=== PATIENT | female | born 1965 | race Caucasian/White ===

== ENCOUNTER 2016-12-23 19:14 | Emergency (ER) | payer OTHER ==
[~2016-12-23] VITALS: Ht 160 cm; Wt 76.0 kg
[~2016-12-23 19:14] MED LIST: BACT800T5 PO; DOXY100T PO; IBUP400 PO; PERC5TAB12 PO; SYNT175T PO; TYLE3 PO
[2016-12-23 19:23] VITALS: BP 117/71; PULSE 92; RESP 18; TEMP 98.1; O2SAT 97
[2016-12-23] MEDS ORDERED: SYNT175T PO (19:37)
--- NOTE | 2016-12-23 19:39 | PD ---
HPI Chief Complaint: Musculoskeletal Complaint Time Seen by Provider: 19:35 Travel History International Travel<30 days: No Contact w/Intl Traveler<30days: No Traveled to known affect area: No History of Present Illness HPI 51-year-old female presents to the emergency Department with painful lesions to the dorsal distal right foot. Patient wonders if it may be due to tripping on her irregular lorena. Patient has a history of staph infections in the past. Patient is unsure if she has ever had MRSA, but it is documented in her chart. She has no fever, chills, or pain up the leg. There is no drainage at this time. She is ambulatory without difficulty. She is allergic to ibuprofen. [facility] Past Medical History Anxiety: Yes Diabetes: No Diminished Hearing: No Immunizations Current: No Thyroid Disease: Yes (HYPO) ?: Not LMP: LAST WEEK : 3 Para: 3 Tubal Ligation: Yes Social History Alcohol Use: Yes (RARELY) Tobacco Use: No Substance Use: No Allergies-Medications (Allergen,Severity, Reaction): Coded Allergies: Ibuprofen (Verified Adverse Reaction, Mild, N & V, 12/23/16) *MDRO Multi-Drug Resistant Organism (Unverified Adverse Reaction, Unknown , 05/02/15) MRSA groin wound 04/2015. Reported Meds & Prescriptions Reported Meds & Active Scripts Active Bactroban Topical (Mupirocin) 2 % Cream 1 Applic TOPICAL BID Bactrim DS (Sulfamethoxazole-Trimethoprim) 800-160 Mg Tab 1 Tab PO BID Reported Synthroid (Levothyroxine Sodium) 175 Mcg Tab 175 Mcg PO DAILY Review of Systems Except as stated in HPI: all other systems reviewed are Neg General / Constitutional: No: Fever Eyes: No: Visual changes HENT: No: Headaches Cardiovascular: No: Chest Pain or Discomfort Respiratory: No: Shortness of Breath Gastrointestinal: No: Abdominal Pain Genitourinary: No: Dysuria Musculoskeletal: No: Pain Skin: Positive Lesions (see history present illness.), No Rash Neurologic: No: Weakness Psychiatric: No: Depression Endocrine: No: Polydipsia Hematologic/Lymphatic: No: Easy Bruising Physical Exam Narrative GENERAL: Patient appears no acute distress. SKIN: Warm and dry. Normal color. Normal turgor. Patient has 5 raised pus filled blisters to the right distal dorsal foot with localized erythema and minimal amount of swelling. There is no lymphangitis. There is no pain to the sole of the foot or toes. Patient has a similar lesion on her pannus on her left lower abdomen. HEAD: Atraumatic. Normocephalic. EYES: Pupils equal and round. No scleral icterus. No injection or drainage. ENT: No nasal bleeding or discharge. Mucous membranes pink and moist. Pharynx is clear. NECK: Trachea midline. No JVD. CARDIOVASCULAR: Regular rate and rhythm. RESPIRATORY: No accessory muscle use. Clear to auscultation. Breath sounds equal bilaterally. MUSCULOSKELETAL: Extremities without clubbing, cyanosis, or edema. No obvious deformities. NEUROLOGICAL: Awake and alert. No obvious cranial nerve deficits. Motor grossly within normal limits. Five out of 5 muscle strength in the arms and legs. Normal speech. PSYCHIATRIC: Appropriate mood and affect; insight and judgment normal. Data Data Last Documented VS Vital Signs Date Time Temp Pulse Resp B/P Pulse Ox O2 Delivery O2 Flow Rate FiO2 12/23/16 19:23 98.1 92 18 117/71 97 Orders Wound Culture And Gram Stain (12/23/16 19:39) [facility] Medical Decision Making Medical Screen Exam Complete: Yes Emergency Medical Condition: Yes Medical Record Reviewed: Yes Differential Diagnosis Cellulitis. MRSA. Possible shingles. Narrative Course Patient medically stable at time of exam. Wound culture obtained and sent to lab. Patient treated with Bactrim he has been 10 days. Patient also given Bactroban ointment to the lesions twice daily for 2 weeks. Patient follow-up with her primary care physician as needed or return to emergency department if symptoms worsen. Diagnosis Primary Impression: Cellulitis of right foot Additional Impression: MRSA (methicillin resistant Staphylococcus aureus) Patient Instructions: Cellulitis (ED), General Instructions, MRSA (Methicillin Resistant Staphylococcus Aureus) (ED) Additional Instructions: Wound culture obtained and sent to lab. Patient treated with Bactrim he has been 10 days. Patient also given Bactroban ointment to the lesions twice daily for 2 weeks. Patient follow-up with her primary care physician as needed or return to emergency department if symptoms worsen. Med/Other Pt SpecificInfo: Prescription(s) given Scripts Mupirocin Topical (Bactroban Topical)2 % Cream1 Applic TOPICAL BID #1 TUBE Prov:Naresh Ordonez MD 12/23/16 Sulfamethoxazole-Trimethoprim (Bactrim DS)800-160 Mg Tab1 Tab PO BID #20 TAB Prov:Naresh Ordonez MD 12/23/16 Disposition: 01 DISCHARGE HOME Condition: Stable Nish Ny Dec 23, 2016 19:39
[2016-12-23] MEDS ORDERED: MUPI2%T TOPICAL (19:41)
[2016-12-23] MEDS ORDERED: BACT800T5 PO (19:41)
== END 2016-12-23 19:55 | disposition home or self-care (01) ==
LOC: PHEFT 19:14
DX: L03.115 Cellulitis of right lower limb (principal); E03.9 Hypothyroidism, unspecified
CPT/HCPCS: 86403; 87070; 87205; 99283

== ENCOUNTER 2017-04-04 08:28 | Emergency (ER) | payer OTHER ==
[~2017-04-04] VITALS: Ht 167.6 cm; Wt 76.0 kg
[~2017-04-04 08:28] MED LIST changes: -DOXY100T PO; -IBUP400 PO; +MUPI2%T TOPICAL; -PERC5TAB12 PO; -TYLE3 PO
[2017-04-04 08:34] VITALS: BP 117/70; PULSE 83; RESP 16; TEMP 99; O2SAT 96
[2017-04-04] MEDS ORDERED: BACT800T5 PO (08:52)
[2017-04-04] MEDS ORDERED: SYNT175T PO (08:52)
--- NOTE | 2017-04-04 08:52 | PD ---
HPI Chief Complaint: Skin Problem Time Seen by Provider: 08:48 Travel History International Travel<30 days: No Contact w/Intl Traveler<30days: No Traveled to known affect area: No History of Present Illness HPI Patient presents with complaints of a boil in her right inguinal region. 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 States she is also out of her thyroid medication. Requesting refill. States she does not have a PCP. Denies any nausea vomiting diarrhea or fever. Denies any new chest pain shortness of breath urinary or bowel symptoms. Denies or allergies. PFSH Past Medical History Anxiety: Yes Diabetes: No Diminished Hearing: No Integumentary: Yes (hx mrsa) Immunizations Current: Yes Thyroid Disease: Yes (HYPO) Tetanus Vaccination: > 5 Years Influenza Vaccination: No ?: Not : 3 Para: 3 Tubal Ligation: Yes Social History Alcohol Use: Yes (RARELY) Tobacco Use: No Substance Use: No Allergies-Medications (Allergen,Severity, Reaction): Coded Allergies: Ibuprofen (Verified Adverse Reaction, Mild, N & V, 04/04/17) *MDRO Multi-Drug Resistant Organism (Unverified Adverse Reaction, Unknown , 04/04/17) MRSA groin wound 04/2015. Reported Meds & Prescriptions Reported Meds & Active Scripts Active Reported Synthroid (Levothyroxine Sodium) 175 Mcg Tab 175 Mcg PO DAILY Review of Systems General / Constitutional: No: Fever Eyes: No: Visual changes HENT: No: Headaches Cardiovascular: No: Chest Pain or Discomfort Respiratory: No: Shortness of Breath Gastrointestinal: No: Abdominal Pain Genitourinary: No: Dysuria Musculoskeletal: No: Pain Skin: No Rash Neurologic: No: Weakness Psychiatric: No: Depression Endocrine: No: Polydipsia Hematologic/Lymphatic: No: Easy Bruising Physical Exam Narrative GENERAL: Well-nourished, well-developed patient. SKIN: Focused skin assessment warm/dry. HEAD: Normocephalic. EYES: No scleral icterus. No injection or drainage. NECK: Supple, trachea midline. No JVD or lymphadenopathy. CARDIOVASCULAR: Regular rate and rhythm without murmurs, gallops, or rubs. RESPIRATORY: Breath sounds equal bilaterally. No accessory muscle use. GASTROINTESTINAL: Abdomen soft, non-tender, nondistended. MUSCULOSKELETAL: No cyanosis, or edema. BACK: Nontender without obvious deformity. No CVA tenderness. Right inguinal boil measuring approximately 2 x 2 centimeters without drainage tender to touch minimal cellulitic change Data Data Last Documented VS Vital Signs Date Time Temp Pulse Resp B/P Pulse Ox O2 Delivery O2 Flow Rate FiO2 04/04/17 08:38 16 04/04/17 08:34 99.0 83 117/70 96 MDM Medical Decision Making Medical Screen Exam Complete: Yes Emergency Medical Condition: Yes Differential Diagnosis Abscess, cellulitis, hypothyroid, folliculitis Narrative Course Assessment and plan discussed with patient at bedside Diagnosis Primary Impression: Folliculitis Additional Impression: Hypothyroid Qualified Code: E03.9 - Hypothyroidism, unspecified type Patient Instructions: General Instructions Med/Other Pt SpecificInfo: Prescription(s) given Scripts Sulfamethoxazole-Trimethoprim (Bactrim DS)800-160 Mg Tab1 Tab PO BID #20 TAB Prov:Antonio Mendoza MD 04/04/17 Levothyroxine (Synthroid)175 Mcg Arw957 Mcg PO DAILY #30 TAB Ref 0 Prov:Antonio Mendoza MD 04/04/17 Disposition: 01 DISCHARGE HOME Condition: Good Antonio Mendoza MD Apr 04, 2017 08:52
== END 2017-04-04 09:04 | disposition home or self-care (01) ==
LOC: PHEFT 08:28
DX: L73.9 Follicular disorder, unspecified (principal); E03.9 Hypothyroidism, unspecified; Z86.59 Personal history of other mental and behavioral disorders; Z87.2 Personal history of diseases of the skin and subcutaneous tissue; Z86.14 Personal history of Methicillin resistant Staphylococcus aureus infection
CPT/HCPCS: 99284

== ENCOUNTER 2017-12-03 10:12 | Emergency (ER) | payer OTHER ==
[~2017-12-03] VITALS: Ht 167.6 cm; Wt 78.0 kg
[~2017-12-03 10:12] MED LIST changes: -MUPI2%T TOPICAL
[2017-12-03 10:25] VITALS: BP 136/75; PULSE 138; RESP 22; TEMP 102.8; O2SAT 98
[2017-12-03 10:51] VITALS: BP 140/81; PULSE 126; RESP 16; TEMP 103.1; O2SAT 97
[2017-12-03 11:00] VITALS: RESP 16; O2SAT 96
[2017-12-03] MEDS ORDERED: SODIUM CHLOR 0.9% 1000 ML INJ 1,000 ML IV ONE (11:00)
[2017-12-03] MEDS ORDERED: ACETAMINOPHEN 325 MG TAB PO ONE (11:00)
[2017-12-03 11:17] LABS: AUTOMATED NEUTROPHIL # 8.9 TH/MM3 (1.8-7.7); BASOPHIL # 0.1 TH/MM3 (0-0.2); BASOPHIL % 0.6 % (0.0-2.0); EOSINOPHIL % 0.2 % (0.0-4.0); HEMATOCRIT 34.3 % (35.0-46.0); HEMOGLOBIN 10.8 GM/DL (11.6-15.3); LYMPH % 10.7 % (9.0-44.0); LYMPHOCYTE # 1.1 TH/MM3 (1.0-4.8); MEAN CELL VOLUME 75.8 FL (80.0-100.0); MEAN CORPUSCULAR HGB CONC 31.6 % (32.0-36.0); MEAN PLATELET VOLUME 7.3 FL (7.0-11.0); MONO % 5.2 % (0.0-8.0); MONOCYTE # 0.6 TH/MM3 (0-0.9); NEUT % 83.3 % (16.0-70.0); PLATELET COUNT 269 TH/MM3 (150-450); RED BLOOD COUNT 4.52 MIL/MM3 (4.00-5.30); RED CELL DISTRIBUTION WIDTH 15.4 % (11.6-17.2); WHITE BLOOD COUNT 10.7 TH/MM3 (4.0-11.0)
[2017-12-03 11:25] LABS: CHLORIDE 104 MEQ/L (98-107); SODIUM (NA) 135 MEQ/L (136-145)
[2017-12-03 11:29] LABS: ALBUMIN 3.6 GM/DL (3.4-5.0); CALCIUM 8.3 MG/DL (8.5-10.1)
--- NOTE | 2017-12-03 11:29 | RADRPT ---
EXAM DATE/TIME: 12/03/2017 11:14 [place] COMPARISON: FOREARM RIGHT (2VWS), March 06, 2015, 17:45. INDICATIONS : Fever. Cellulitis left foot. Weakness. MEDICAL HISTORY : Hyperthyroidism. SURGICAL HISTORY : Tubal ligation. ENCOUNTER: Initial ACUITY: 1 day PAIN SCORE: 0/10 LOCATION: chest FINDINGS: PA and lateral views of the chest demonstrate the lungs to be symmetrically aerated without evidence of mass, infiltrate or effusion. The cardiomediastinal contours are unremarkable. Osseous structure s are intact. CONCLUSION: 1. No acute cardiopulmonary findings identified. Frantz Welsh MD on December 03, 2017 at 11:26 Board Certified Radiologist. This report was verified electronically.
[2017-12-03 11:30] LABS: BICARBONATE 21.3 MEQ/L (21.0-32.0); BLOOD UREA NITROGEN 12 MG/DL (7-18); GLUCOSE,RANDOM 106 MG/DL (74-106); MAGNESIUM 1.6 MG/DL (1.5-2.5)
[2017-12-03 11:32] LABS: ALT (GPT) 42 U/L (10-53); AST (GOT) 37 U/L (15-37)
[2017-12-03 11:33] LABS: CREATININE 0.85 MG/DL (0.50-1.00); GLOMERULAR FILTRATION RATE 71 ML/MIN (>89)
[2017-12-03 11:34] LABS: TOTAL BILIRUBIN ADULT 0.7 MG/DL (0.2-1.0); TOTAL PROTEIN 7.6 GM/DL (6.4-8.2)
[2017-12-03 11:35] LABS: ALKALINE PHOSPHATASE 72 U/L (45-117)
--- NOTE | 2017-12-03 11:43 | PD ---
HPI Chief Complaint: Skin Problem Time Seen by Provider: 10:31 Travel History International Travel<30 days: No Contact w/Intl Traveler<30days: No Traveled to known affect area: No History of Present Illness HPI Patient is a 52 yo female presenting with acute onset of left lower leg pain and swelling of her foot. She says she woke up suddenly this morning in a lot of pain that started in her calf and worked its way down to her toes. Her toes became very red and swollen. She says she has had cold like symptoms the past few weeks. She denies any other symptoms. She denies any recent trauma to her leg or foot, she does not recall any bites or stings. No recent travel history. 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 She does not drink alcohol or use tobacco products. Symptoms mild, past few hours, constant, context as above PFSH Past Medical History Anxiety: Yes Diabetes: No Diminished Hearing: Yes (left ear hearing decreased) Integumentary: Yes (hx mrsa) Immunizations Current: Yes Thyroid Disease: Yes (HYPO) Tetanus Vaccination: > 5 Years Influenza Vaccination: No ?: Not LMP: 11/14/2017 : 3 Para: 3 Tubal Ligation: Yes Social History Alcohol Use: Yes (occas mix drinks) Tobacco Use: No Substance Use: No Allergies-Medications (Allergen,Severity, Reaction): Coded Allergies: ibuprofen (Unverified Adverse Reaction, Mild, N & V, 12/03/17) *MDRO Multi-Drug Resistant Organism (Unverified Adverse Reaction, Unknown , 12/03/17) MRSA groin wound 04/2015. Reported Meds & Prescriptions Reported Meds & Active Scripts Active Bactrim DS (Sulfamethoxazole-Trimethoprim) 800-160 Mg Tab 2 Tab PO BID 7 Days Synthroid (Levothyroxine Sodium) 175 Mcg Tab 175 Mcg PO DAILY Review of Systems Except as stated in HPI: all other systems reviewed are Neg Physical Exam Narrative GENERAL: Patient is well appearing, in no acute distress. SKIN: Warm and dry. No rash no wound seen on her person. HEAD: Atraumatic. Normocephalic. EYES: Pupils equal and round. No scleral icterus. No injection or drainage. ENT: No nasal bleeding or discharge. Mucous membranes pink and moist. TMs clear bilaterally, oropharynx clear moist NECK: Trachea midline. No JVD. CARDIOVASCULAR: Regular rate and rhythm. RESPIRATORY: No accessory muscle use. Clear to auscultation. Breath sounds equal bilaterally. GASTROINTESTINAL: Abdomen soft, non-tender, nondistended. Hepatic and splenic margins not palpable. MUSCULOSKELETAL: Upper extremities and left leg without cyanosis, edema, erythema. Right leq is non tender and not swollen or erythematous. Right foot and toes appear swollen, second toe is especially swollen. [place], lacy rash extends across her toes and partially down her foot towards her ankle. Toes and foot are tender to palpation. Nontender resting on the bed or under the blanket. Foot is luke warm. NEUROLOGICAL: Awake and alert. No obvious cranial nerve deficits. Motor grossly within normal limits. Five out of 5 muscle strength in the arms and legs. Normal speech. PSYCHIATRIC: Appropriate mood and affect; insight and judgment normal. Data Data Last Documented VS Vital Signs Date Time Temp Pulse Resp B/P (MAP) Pulse Ox O2 Delivery O2 Flow Rate FiO2 12/03/17 14:11 100 16 110/61 (77) 98 12/03/17 11:46 Room Air 12/03/17 10:51 103.1 Orders Orders Sepsis Workup Initiated (12/03/17 ) Electrocardiogram (12/03/17 10:54) Complete Blood Count With Diff (12/03/17 10:54) Comprehensive Metabolic Panel (12/03/17 10:54) Prothrombin Time / Inr (Pt) (12/03/17 10:54) Act Partial Throm Time (Ptt) (12/03/17 10:54) Lactic Acid Sepsis Protocol (12/03/17 10:54) Magnesium (Mg) (12/03/17 10:54) Phosphorus (Po4) (12/03/17 10:54) Lipase (12/03/17 10:54) Ckmb (Isoenzyme) Profile (12/03/17 10:54) Urinalysis - C+S If Indicated (12/03/17 10:54) Chest, Pa & Lat (12/03/17 10:54) Ecg Monitoring (12/03/17 10:54) Iv Access Insert/Monitor (12/03/17 10:54) Oximetry (12/03/17 10:54) Oxygen Administration (12/03/17 10:54) Acetaminophen (Tylenol) (12/03/17 11:00) Sodium Chlor 0.9% 1000 Ml Inj (Ns 1000 M (12/03/17 11:00) Influenzae A/B Antigen (12/03/17 10:54) Ed Discharge Order (12/03/17 13:53) Labs Laboratory Tests Test 12/03/17 11:10 12/03/17 12:25 White Blood Count 10.7 TH/MM3 Red Blood Count 4.52 MIL/MM3 Hemoglobin 10.8 GM/DL Hematocrit 34.3 % Mean Corpuscular Volume 75.8 FL Mean Corpuscular Hemoglobin 24.0 PG Mean Corpuscular Hemoglobin Concent 31.6 % Red Cell Distribution Width 15.4 % Platelet Count 269 TH/MM3 Mean Platelet Volume 7.3 FL Neutrophils (%) (Auto) 83.3 % Lymphocytes (%) (Auto) 10.7 % Monocytes (%) (Auto) 5.2 % Eosinophils (%) (Auto) 0.2 % Basophils (%) (Auto) 0.6 % Neutrophils # (Auto) 8.9 TH/MM3 Lymphocytes # (Auto) 1.1 TH/MM3 Monocytes # (Auto) 0.6 TH/MM3 Eosinophils # (Auto) 0.0 TH/MM3 Basophils # (Auto) 0.1 TH/MM3 CBC Comment AUTO DIFF Differential Comment AUTO DIFF CONFIRMED Prothrombin Time 10.5 SEC Prothromb Time International Ratio 1.0 RATIO Activated Partial Thromboplast Time 26.4 SEC Blood Urea Nitrogen 12 MG/DL Creatinine 0.85 MG/DL Random Glucose 106 MG/DL Total Protein 7.6 GM/DL Albumin 3.6 GM/DL Calcium Level 8.3 MG/DL Phosphorus Level 2.0 MG/DL Magnesium Level 1.6 MG/DL Alkaline Phosphatase 72 U/L Aspartate Amino Transf (AST/SGOT) 37 U/L Alanine Aminotransferase (ALT/SGPT) 42 U/L Total Bilirubin 0.7 MG/DL Sodium Level 135 MEQ/L Potassium Level 3.5 MEQ/L Chloride Level 104 MEQ/L Carbon Dioxide Level 21.3 MEQ/L Anion Gap 10 MEQ/L Estimat Glomerular Filtration Rate 71 ML/MIN Lactic Acid Level 1.6 mmol/L Total Creatine Kinase 69 U/L Lipase 150 U/L Urine Collection Type CATH Urine Color YELLOW Urine Turbidity HAZY Urine pH 5.5 Urine Specific Bland 1.022 Urine Protein NEG mg/dL Urine Glucose (UA) NEG mg/dL Urine Ketones NEG mg/dL Urine Occult Blood MOD Urine Nitrite NEG Urine Bilirubin NEG Urine Leukocyte Esterase SMALL Urine Squamous Epithelial Cells > 8 /hpf Urine Amorphous Sediment MOD Microscopic Urinalysis Comment CATH-CULT NOT IND MDM Medical Decision Making Medical Screen Exam Complete: Yes Emergency Medical Condition: Yes Differential Diagnosis Influenza, cellulitis, sepsis, pneumonia, Narrative Course Patient room to the emergency department, appears to have some mild cellulitis of the toes and foot, I do not think that this explains her fever and thus a workup was initiated, the blood cell count is actually normal, influenza testing negative. She actually appears quite well and was unaware that she was even running fever. 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 The only source of her fever isolated this is mild cellulitis. After fluids and Tylenol her vital signs have normalized. The patient was then discussed with Dr. Welsh I believe the patient is stable for discharge but she would like to see the patient prior to sending her home given her level of fever. She is seen and examined the patient and agrees with the patient to be discharged on Bactrim and she will follow-up the patient tomorrow in her office. This was discussed with the patient and she is agreeable as well. She is stable for discharge per Diagnosis Primary Impression: Fever Additional Impression: Cellulitis Referrals: Mehreen Welsh MD Additional Instructions: Go to Dr. Vogt office tomorrow (december 04) at 2:00PM Med/Other Pt SpecificInfo: Prescription(s) given Scripts Sulfamethoxazole-Trimethoprim (Bactrim DS) 800-160 Mg Tab 2 TAB PO BID for Infection for 7 Days, #28 TAB 0 Refills Prov: Hung Diallo MD 12/03/17 Disposition: 01 DISCHARGE HOME Condition: Stable Hung Diallo MD Dec 03, 2017 11:42
[2017-12-03 11:46] VITALS: BP 135/77; PULSE 117; RESP 16; O2SAT 96
[2017-12-03 12:23] LABS: PROTHROMBIN TIME - PATIENT 10.5 SEC (9.8-11.6)
[2017-12-03 12:30] VITALS: BP 104/64; PULSE 101; RESP 16
[2017-12-03 12:31] LABS: BILIRUBIN, URINE NEG (NEG); BLOOD, URINE MOD (NEG); GLUCOSE,URINE NEG (NEG); KETONE, URINE NEG (NEG); NITRITE,URINE NEG (NEG); PH, URINE 5.5 (5.0-8.5); URINE LEUKOCYTE ESTERASE SMALL (NEG)
[2017-12-03 12:39] LABS: URINE COLOR YELLOW (YELLW/STRAW)
[2017-12-03 12:40] LABS: AMORPHOUS SEDIMENT, URINE MOD; SQUAMOUS EPITHELIAL CELL URINE > 8 /hpf (0-5)
[2017-12-03] MEDS ORDERED: BACT800T5 PO (13:52)
[2017-12-03 14:11] VITALS: BP 110/61
--- NOTE | 2017-12-03 20:20 | EKG ---
Date Performed: 12/03/2017 Time Performed: 11:26:58 PTAGE: 52 years EKG: SINUS TACHYCARDIA LOW QRS VOLTAGE IN EXTREMITY LEADS INCOMPLETE RIGHT BUNDLE BRANCH BLOCK A BNORMAL RHYTHM ECG NO PREVIOUS TRACING DOCTOR: Lincoln Medrano Interpretating Date/Time 12/03/2017 20:15:29
== END 2017-12-03 14:02 | disposition home or self-care (01) ==
LOC: PHED 10:12
DX: R50.9 Fever, unspecified (principal); L03.116 Cellulitis of left lower limb; Z88.6 Allergy status to analgesic agent
CPT/HCPCS: 71046; 80053; 81001; 82550; 83605; 83690; 83735; 84100; 85025; 85610; 85730; 87804; 93005; 96360; 99285; J7030